=== PATIENT | male | born 1940 | race Caucasian/White ===

== ENCOUNTER → 2020-12-27 03:06 | Outpatient (CLI) | payer MEDICARE, SELFPAY ==
[2020-12-27 18:14] LABS: SARS-CoV-2 RNA PCR Negative
== END ==
PROVIDERS: Visit Provider Surgery
DX: Z01.812 Encounter for preprocedural laboratory examination (principal); Z20.822 Contact with and (suspected) exposure to COVID-19
CPT/HCPCS: C9803; U0003; U0005

== ENCOUNTER 2020-12-27 09:54 | Outpatient (CLI) | payer MEDICARE, SELFPAY ==
--- NOTE | ~2020-12-27 | PE_ITS ---
EXAMINATION: PET skull to mid thigh DATE: 12/27/2020 13:03 INDICATION: Lung cancer. TECHNIQUE: Blood glucose level was 113 mg/dL. 9.294 mCi of 18-fluorodeoxyglucose (18-FDG) was adminis tered i.v. Low dose computed tomography (CT) images were acquired from the base of the brain to the p roximal thighs for attenuation correction and anatomic localization. Automated exposure control was e mployed. Dose-length product (DLP) was 906 mGy-cm. Positron emission tomography (PET) images were acq uired in the same distribution. COMPARISON: CT chest, abdomen, and pelvis 11/18/2020, brain MRI 11/18/2020 FINDINGS: Head/neck: The brain demonstrates a right parietal mass without increased activity with surrounding v asogenic edema with locally decreased activity. There are no pathologically enlarged lymph nodes. The re is increased activity in a lymph node in left parotid gland. Chest: There is an 8.4 x 5.7 cm mass in right lung upper lobe with central necrosis and maximum SUV o f 16.9. There is an enlarged right hilar lymph node with increased activity. Calcified left hilar lym ph nodes are consistent with old granulomatous disease. There is a small right pleural effusion. The heart size is normal. There are coronary artery calcifications. No pericardial effusion. Abdomen/pelvis/proximal thighs: The liver, spleen, gallbladder, pancreas, adrenal glands, and left ki dney are normal. There is a 3.2 cm cyst in right kidney. The prostate is severely enlarged. There are scattered diverticula in the colon. There are no dilated loops of bowel. There are no pathologically enlarged lymph nodes. There is no free intraperitoneal fluid. There are chronic bilateral L5 pars de fects. There is severe lumbar spondylosis. IMPRESSION: 1. Right lung upper lobe mass with increased activity, consistent with primary bronchogenic carcinoma . 2. Enlarged right hilar lymph node with increased activity, consistent with metastatic disease. 3. Right parietal lobe brain mass without increased activity, consistent with treated metastatic dise ase. 4. Small right pleural effusion. 5. Normal sized left parotid lymph node with increased activity, likely reactive. Reviewed, dictated and finalized at location A. IMPRESSION: 1. Right lung upper lobe mass with increased activity, consistent with primary bronchogenic carcinoma. 2. Enlarged right hilar lymph node with increased activity, consistent with met astatic disease. 3. Right parietal lobe brain mass without increased activity, consistent with t reated metastatic disease. 4. Small right pleural effusion. 5. Normal sized left parotid lymph node with increased activity, likely reactiv e.
[2020-12-27 11:09] LABS: Glucose Point of Care 113 mg/dl (65-105)
== END 2020-12-27 09:55 | disposition home or self-care (01) ==
PROVIDERS: Visit Provider Internal Medicine Hematology & Oncology
DX: C34.90 Malignant neoplasm of unspecified part of unspecified bronchus or lung (principal); J90 Pleural effusion, not elsewhere classified
CPT/HCPCS: 78815; 82948; A9552

== ENCOUNTER 2020-12-30 01:53 | Day surgery (SDC) | payer MEDICARE, SELFPAY ==
[2020-12-23 11:07] VITALS: BMI 29.5
--- NOTE | ~2020-12-30 | XR_ITS ---
EXAMINATION: XR chest port-a-cath/central EXAM DATE: 12/30/2020 14:51 INDICATION: Portacatheter insertion. TECHNIQUE: Portable AP frontal chest x-ray was obtained. There is no prior study for comparison. FINDINGS: There is a right-sided portacatheter, tip projecting over superior margin of the right atri um. Right upper lobe mass. Right perihilar atelectasis. No pneumothorax or pleural effusion. Low lung vol ume, poor inspiration. Cardiomediastinal silhouette is normal. Moderate bridging endplate osteophytes . IMPRESSION: 1. No evidence postprocedure pneumothorax. 2. Right upper lobe mass. Reviewed, dictated and finalized at location B.
--- NOTE | ~2020-12-30 | XR_ITS ---
EXAMINATION: XR fl guide central line place DATE: 12/30/2020 14:18 INDICATION: Port catheter insertion. TECHNIQUE: 2 fluoroscopic images of the right upper chest were obtained during procedure performed by Dr. Mahmood. Radiologist was not present for the imaging or procedure. The amount of fluoroscopy simi e used during this procedure was 0.9 minutes. COMPARISON: None. FINDINGS: Right internal jugular central venous port catheter with distal tip positioned at the cauda l superior vena cava. Large mass in the right midlung zone consistent with reported history of lung c ancer. Metallic markers from lap sponges projected over the right supraclavicular region on one image and at the right axilla on the second image, likely external to the patient. IMPRESSION: 1. Fluoroscopy utilized during right internal jugular central venous port catheter placement with dis alyse tip at the caudal superior vena cava. 2. Large mass in the right midlung consistent with lung cancer. Reviewed, dictated and finalized at location A. IMPRESSION: 1. Fluoroscopy utilized during right internal jugular central venous port mayela ter placement with distal tip at the caudal superior vena cava. 2. Large mass in the right midlung consistent with lung cancer.
--- NOTE | 2020-12-30 11:51 | PM.HPGS ---
History of Present Illness History of Present Illness Consent: Risks, benefits, and alternatives of placement of an ultrasound-guided Port-A-Cath have been discussed and questions answered. Patient agrees to proceed with procedure. Chief complaint: non small cell lung CA Narrative: Jake Garcia is a 80 year old male was recently discovered to have right-sided lung cancer felt to be poorly differentiated non-small cell cancer in the right upper lobe. He also has a brain metastasis which has received some radiation treatments and has a suspicious nodule in the liver. Patient is planning to undergo some chemotherapy for treatment. Therefore, Dr. Marrero is referred in for placement of a Port-A-Cath. Review of Systems Constitutional: Constitutional: Reports no additional constitutional complaints, Reports fatigue and Denies malaise Eyes: Eyes: Denies change in vision and Denies loss of vision ENT: Reports Normal hearing present, Denies change in voice, Denies dizziness, Denies hoarseness and Denies sore throat Cardiovascular: Cardiovascular: Denies chest pain, Denies leg edema and Denies dyspnea Comments: patient has a history of essential hypertension, no history of coronary artery disease. Respiratory: Respiratory: Denies cough, Denies dyspnea and Denies wheezing Gastrointestinal: Gastrointestinal: Denies hematochezia, Denies change in bowel habits and Denies heartburn Comments: History of GERD on pantoprazole. Genitourinary: Genitourinary: Denies urinary frequency and Denies urinary incontinence Comments: Patient has chronic kidney disease stage 3 with a GFR between 30 and 59 mL/minute Also, impotence of the organic origin. Neurologic: Reports Normal hearing present, Denies confusion, Denies dizziness, Denies loss of vision, Denies memory loss and Denies seizure-like activity Comments: Known 2 x 2 x 1.8 cm mass and 1 parietal lobe felt to be metastatic lung cancer Psychiatric: Psychiatric: Denies confusion, Denies depression and Denies memory loss Comments: improved mental status after brain radiation treatments to the above-listed mass Endocrine: Endocrine: Denies cold intolerance and Reports fatigue Comments: known history of hypothyroidism and type 2 diabetes. Patient is on levothyroxine and metformin along with some injectable insulin. Hematologic/Lymphatic: Hematologic/Lymphatic: Denies easy bleeding and Denies easy bruising Allergic/Immunologic: Allergic/Immunologic: Denies wheezing PMFSH Past Medical History Medical History Diabetes GERD (gastroesophageal reflux disease) Hyperlipidemia Hypertension (Unknown) Hypothyroidism (Unknown) Lung cancer metastatic to brain (~11/2020) Social History Social History Smoking status: Never smoker Living arrangements: with family Spiritual care concerns: No Meds Home Medications and Allergies Home Medications Medication Instructions Recorded Confirmed Type dexamethasone 1 mg PO QAM 12/23/20 12/23/20 History levetiracetam 500 mg PO BID 12/23/20 12/23/20 History levothyroxine 100 mcg PO DAILY 12/23/20 12/23/20 History metformin 500 mg PO BID 12/23/20 12/23/20 History metoprolol succinate 50 mg PO QAM 12/23/20 12/23/20 History ondansetron HCl 4 mg PO PRN PRN 12/23/20 12/23/20 History pantoprazole 40 mg PO DAILY 12/23/20 12/23/20 History simvastatin 20 mg PO DAILY 12/23/20 12/23/20 History tamsulosin 0.4 mg PO HS 12/23/20 12/23/20 History Allergies Allergy/AdvReac Type Severity Reaction Status Date / Time montelukast Allergy Unknown Insomnia Verified 12/30/20 12:57 Exam Const: General: cooperative, healthy appearing, no acute distress, well developed and alert; No confusion Nutritional Appearance: well nourished Orientation/consciousness: patient oriented x3 and No confusion Limitations: no limitations HENMT: Head: normal to ins
--- NOTE | 2020-12-30 12:38 | WPDANESEPPF ---
Anes - Initial Pre Proc Eval Procedure: Operation Date: 12/30/20 14:00 Proposed Procedures p Insertion Roberto Cath - Aldo Mahmood MD Date/Time: 12/30/20 12:38 Surgeon: Aldo Mahmood MD Pre Op Diagnosis: non small cell lung CA Patient Data Age: 80 Gender: M Height: 5 ft 9 in Weight: 90.72 kg Allergies Allergy/AdvReac Type Severity Reaction Status Date / Time montelukast Allergy Unknown Insomnia Verified 12/23/20 10:30 Home Medications Medication Instructions Recorded Confirmed Type dexamethasone 1 mg PO QAM 12/23/20 12/23/20 History levetiracetam 500 mg PO BID 12/23/20 12/23/20 History levothyroxine 100 mcg PO DAILY 12/23/20 12/23/20 History metformin 500 mg PO BID 12/23/20 12/23/20 History metoprolol succinate 50 mg PO QAM 12/23/20 12/23/20 History ondansetron HCl 4 mg PO PRN PRN 12/23/20 12/23/20 History pantoprazole 40 mg PO DAILY 12/23/20 12/23/20 History simvastatin 20 mg PO DAILY 12/23/20 12/23/20 History tamsulosin 0.4 mg PO HS 12/23/20 12/23/20 History Patient hx anesthesia problems: none Family hx anesthesia problems: none [facility] Past Medical History Medical History Diabetes GERD (gastroesophageal reflux disease) Hyperlipidemia Hypertension (Unknown) Hypothyroidism (Unknown) Lung cancer metastatic to brain (~11/2020) Social History Social History Smoking status: Never smoker Living arrangements: with family Spiritual care concerns: No Anes - Eval Final PreProcedure Day of Procedure 12/30/20 12:38 Patient weight: overweight Heart: regular rate and rhythm Lungs: decreased breath sounds Airway: Mallampati scale class II Neurological: alert and oriented Last oral intake: >/= 8 hours ASA classification: IV Emergent: no Anesthetic plan: proceed Anesthesia type and monitoring: general GIVS and standard monitoring Informed Consent: The patient's anesthetic plan and its attendant risks and benefits were discussed with the patient/family/POA. Questions were solicited and answers provided to the satisfaction of the patient/family/POA.
[2020-12-30] MEDS: KETOROLAC 15 MG/ML VIAL (*BKC) IV PUSH (12:57)
--- NOTE | 2020-12-30 12:57 | WPDHPUPDATE1 ---
History and Physical Update Update Date/Time: 12/30/20 12:57 History and Physical has been reviewed, including an updated exam of the patient. There are NO changes in the patient's condition. Risks, benefits, and alternatives have been discussed and questions answered. Patient agrees to proceed with procedure.
[2020-12-30] MEDS: LACTATED RINGERS 1,000 ML 30 ML IV CONT (12:58)
[2020-12-30 12:59] LABS: Prothrombin Time 13.4 Seconds (11.1-14.7)
[2020-12-30 13:00] LABS: Partial Thromboplastin Time 22.4 SECONDS (22.3-36.8)
[2020-12-30 13:01] LABS: Glucose Point of Care 130 mg/dl (65-105)
[2020-12-30 13:12] VITALS: BP 97/63; PULSE 74; RESP 16; TEMP 36.3; O2SAT 96
[2020-12-30] MEDS: ceFAZolin 2 GM/D5W 50 ML 2 GM/50 ML BAG IVPB (13:30)
[2020-12-30] MEDS: HEPARIN SODIUM 5,000 UNITS/ML VIAL 5000 UNITS IRRIGATION (14:06)
[2020-12-30] MEDS: BUPIVACAINE/EPINEPHRINE 0.5% 10 ML VIAL 50 ML INFILTRATE (14:07)
--- NOTE | 2020-12-30 14:30 | PM.PROC ---
Procedure Note - Detailed Date of procedure: 12/30/20 Pre-op diagnosis: non small cell lung CA Post-op diagnosis: same Procedure performed: Ultrasound-guided placement of Port-A-Cath Description of procedure: Patient was seen and marked in the pre-op area prior to coming to the OR. Patient was brought to the operating room. He was placed supine on the operating table and general IV sedation was induced. The nurse anatomical embalmer provided oxygen and IV sedation. Patient's head was carefully turned to the left side while in the supine position and the patient's entire neck and anterior chest on both sides was prepped and draped in the usual sterile fashion. Following this the appropriate time-out was completed confirming procedure and patient. We confirmed that all the needed equipment was present in the room. Following this the ultrasound probe was draped into the field and using the probe we carefully identified the carotid artery and jugular vein on the right neck. I marked the skin directly over the Rt. internal jugular vein. We also then took a picture and placed in the chart of the vascular anatomy shown by ultrasound in the right neck. Right where I was going to place the needle toward the vein I made a small patrick in the skin with an 11 blade knife. Following this, using the continuous ultrasound guidance, a Cook needle was placed through the skin incision into this vein. I then was able to draw back good dark blood. Once this was completed a guidewire using a J-tip was advanced through the needle and then the needle and the guidewire cover were withdrawn. C-arm fluoroscopy was used to confirm that the guidewire was nicely in the venous system. Once this was confirmed with the C - arm I preceded on by making the pocket for the port on the patient's anterior right chest approximately 3 centimeters below the clavicle overlying the chest wall. Local anesthetic was infiltrated into the skin where there was a transverse incision marked out. Incision was made and we made a pocket inferior to the incision with just a little dissection superior. The low-profile Bard port was tried in the pocket and seemed to fit well. Following this the catheter which had been placed on a tunneling device was tunneled from the port site on the anterior right chest up to the right neck where a small incision had been made with an #11 blade knife. Then the catheter was pulled through so that we would have 15 centimeters to put into the central venous system once the dilation took place. Following this we placed the dilator and sheath over the guidewire in the jugular vein and carefully dilated the tract into the central venous system. The guidewire and dilator were then removed, carefully covering the end of the sheath to prevent air embolus. The end of the catheter which had been cut off straight across and the tip checked was then inserted into the sheath and into the neck. I then carefully pulled the 2 arms of the tear-away sheath away as the administrative assistant coordinator held the catheter in position with a DeBakey forceps. Following this we checked the position of the catheter with C-arm fluoroscopy confirming that the tip seemed to be in the distal superior vena cava near the junction with the right atrium. I felt that it was in good position and so the rest of the catheter was pulled down toward the feet into the port site. We then measured to the appropriate position to cut the catheter to attach it to the port stem. Then the connector sealing device for the catheter port was placed onto the catheter and then the catheter cut to the appropriate length and inserted onto the stem of the port. Then the connector was advanced onto the stem over the catheter sealing it to the port. A single 3-0 Prolene suture was also used during this to suture the port and to the underlying musculature on the medial side. Following this at one other site the port was sutured to the underlying musculature on the lat
[2020-12-30 14:37] VITALS: BP 116/65; PULSE 58; RESP 12; TEMP 36.4; O2SAT 95
[2020-12-30 14:50] VITALS: BP 113/65; PULSE 67; RESP 16; O2SAT 94
[2020-12-30 15:20] VITALS: BP 112/66; PULSE 67; RESP 16
--- NOTE | 2020-12-30 16:16 | SUR.PHASEII ---
DISCHARGE INSTRUCTIONS REVIEWED WITH PATIENT AND . PATIENT HAS POOR MEMORY.
--- NOTE | 2020-12-30 16:18 | SUR.PHASEII ---
1550 PRESSURE TO LEFT FOREARM PIV SITE WHEN DISCONTINUED BUT BLED ONTO 2 X 2 AND SHIRT. BLEEDING STOPPED. DRESSING CHANGED.
--- NOTE | 2020-12-30 16:20 | SUR.PHASEII ---
PATIENT ASSISTED WITH DRESSING.
[2021-01-02 08:50] LABS: Glucose Point of Care 142 mg/dl (65-105)
== END 2020-12-30 16:10 | disposition home or self-care (01) ==
PROVIDERS: PCP Internal Medicine; Visit Provider Surgery
PROC: (CPT 36561; principal; 2020-12-30 14:00)
DX: C34.91 Malignant neoplasm of unspecified part of right bronchus or lung (principal); C79.31 Secondary malignant neoplasm of brain; K76.89 Other specified diseases of liver; E11.9 Type 2 diabetes mellitus without complications; K21.9 Gastro-esophageal reflux disease without esophagitis; I10 Essential (primary) hypertension; E03.9 Hypothyroidism, unspecified; Z79.84 Long term (current) use of oral hypoglycemic drugs
CPT/HCPCS: 36561; 36415; 76937; 77001; 78815; 82948; 85610; 85730; A9552; C1788; C9803; J0690; J1644; J1885; J3010; J7030; J7120; U0003; U0005

== ENCOUNTER 2021-01-10 08:25 | Outpatient (RCR) | payer MEDICARE, SELFPAY ==
--- NOTE | 2020-12-28 15:56 | PHAR ---
BIOSIMILAR SUBSTITUTION POLICY: [facility] ([id number]) ([facility]) SUBED FOR NEULASTA ONPRO PER POLICY. PATIENT WILL BE INFORMED AT EDUCATION OR FIRST INFUSION
[2021-01-10 09:00] LABS: Hematocrit 30.4 % (42.0-52.0); Hemoglobin 10.5 g/dL (14.0-18.0); Immature Granulocyte Absolute 0.03 K/mm3 (0.00-0.031); Immature Granulocyte Percent A 0.6 % (0-0.5); Lymphocytes Absolute Auto 1.46 K/mm3 (0.9-3.2); Lymphocytes Percent Auto 27.4 % (18.3-44.2); Mean Corpuscular HGB Conc 34.5 g/dl (32-36); Mean Corpuscular Hemoglobin 29.7 pg (26-34); Mean Corpuscular Volume 86.1 fl (80-100); Mean Platelet Volume 7.9 fl (7.4-10.4); Monocytes Absolute Auto 0.3 K/mm3 (0.1-0.6); Monocytes Percent Auto 4.9 % (2.6-8.5); Neutrophils Absolute Auto 3.6 K/mm3 (1.3-6.7); Neutrophils Percent Auto 67.1 % (45.5-73.1); Platelet Count Result 195 k/mm3 (150-375); Red Blood Count 3.53 M/mm3 (4.6-6.20); Red Cell Distribution Width 13.7 % (11.5-14.5); White Blood Count 5.3 K/mm3 (4.5-10.0)
[2021-01-10 09:07] LABS: Atypical Lymphocytes Present; Platelet Estimate Adequate (Adequate)
[2021-01-10] MEDS: HEPARIN SOD FLUSH 500 UNITS/5 ML SYRINGE (10:17)
[2021-01-10 10:45] LABS: Alanine Aminotransferase 296 U/L (4-50); Albumin Level 2.6 g/dL (3.5-5.1); Alkaline Phosphatase 87 U/L (38-126); Anion Gap 6 mmol/L (8-16); Aspartate Amino Transferase 111 U/L (17-59); Bilirubin,Total 0.8 mg/dL (0.2-1.3); Blood Urea Nitrogen 18 mg/dL (9-20); Calcium 8.3 mg/dL (8.4-10.2); Carbon Dioxide 24 mmol/L (22-30); Chloride 105 mmol/L (98-107); Estimated CRCL calculation 57 ml/min; Estimated Glomerular Filt Rate > 60; Glucose 210 mg/dL (75-110); Magnesium 2.1 mg/dL (1.6-2.3); Potassium 4.3 mmol/L (3.4-5.0); Sodium 135 mmol/L (137-145)
[2021-01-10 11:41] LABS: Blood Urea Nitrogen 17 mg/dL (8-26); Carbon Dioxide 23 mmol/L (22-30); Chloride 101 mmol/L (98-109); Estimated CRCL calculation 52 ml/min; Estimated Glomerular Filt Rate > 60; Glucose 215 mg/dL (70-105); Potassium 4.1 mmol/L (3.5-4.9); Sodium 138 mmol/L (138-146)
== END 2021-01-12 13:18 | disposition hospice, home (50) ==
LOC: AMCINF 08:25
PROVIDERS: Visit Provider Internal Medicine Hematology & Oncology
DX: C34.90 Malignant neoplasm of unspecified part of unspecified bronchus or lung (principal); C79.31 Secondary malignant neoplasm of brain; T45.1X5A Adverse effect of antineoplastic and immunosuppressive drugs, initial encounter; D70.1 Agranulocytosis secondary to cancer chemotherapy; D64.9 Anemia, unspecified; D12.6 Benign neoplasm of colon, unspecified; I12.9 Hypertensive chronic kidney disease with stage 1 through stage 4 chronic kidney disease, or unspecified chronic kidney disease; N18.30 Chronic kidney disease, stage 3 unspecified; J31.0 Chronic rhinitis; E03.9 Hypothyroidism, unspecified; E11.22 Type 2 diabetes mellitus with diabetic chronic kidney disease; E78.5 Hyperlipidemia, unspecified
CPT/HCPCS: 36415; 80048; 80053; 83735; 84443; 85025; 99213; G0463